=== PATIENT | female | born 1960 | race Caucasian/White ===

== ENCOUNTER 2017-12-07 17:08 | Emergency (ER) | payer OTHER ==
[2017-12-07] MEDS ORDERED: DEXAMETHASONE CONC 1 MG/ML SOLN PO ONE (20:08)
[2017-12-07] MEDS ORDERED: DIPHENHYDRAMINE HCL 25 MG CAPSULE PO ONE (20:08)
[2017-12-07 20:52] VITALS: BP 104/76
--- NOTE | 2017-12-07 21:45 | ER Document Report ---
ED General - General Chief Complaint: Numbness Stated Complaint: MOUTH/THROAT SWELLING, TINGLING HANDS Time Seen by Provider: 12/07/17 19:06 Mode of Arrival: Ambulatory Information source: Patient, Parent TRAVEL OUTSIDE OF THE [place] IN LAST 30 DAYS: No - HPI Patient complains to provider of: Sore throat Onset: Other - 57-year-old woman that presents 3 hours after sensation of fullness in her throat and tongue while eating a sandwich, she noted that she spoke with her at that time showed him her tongue as well as her lips and he did not appreciate any any swelling at that time. She has had a history of anxiety in the past and wondered to panic attacks this did feel similar to that she was not quite sure as there was some component that involved lips a little more than usual. She has never had any anaphylaxis to anything in the past, never needed an EpiPen. - Related Data Allergies/Adverse Reactions: Penicillins Allergy (Verified 12/07/17 17:09) Sulfa (Sulfonamide Antibiotics) Allergy (Verified 12/07/17 17:09) tetanus and diphtheria toxoids Allergy (Verified 12/07/17 17:09) Past Medical History - General Information source: Patient - Social History Smoking Status: Never Smoker Frequency of alcohol use: None Drug Abuse: None Family History: None Patient has suicidal ideation: No Patient has homicidal ideation: No - Past Medical History Cardiac Medical History: Reports: Hx Hypertension Pulmonary Medical History: Reports: Hx Pneumonia Renal/ Medical History: Denies: Hx Peritoneal Dialysis Psychiatric Medical History: Reports: Hx Depression - anxiety Past Surgical History: Reports: Hx Oral Surgery - wisdom teeth, Hx Orthopedic Surgery - jaw repair Review of Systems - Review of Systems -: Yes All other systems reviewed and negative Physical Exam - Vital signs Vitals: Temp Pulse BP Pulse Ox 97.4 F 87 113/63 96 12/07/17 17:19 12/07/17 17:19 12/07/17 17:19 12/07/17 17:19 - General General appearance: Appears well In distress: None - HEENT Head: Normocephalic Eyes: Normal Conjunctiva: Normal Cornea: Normal Extraocular movements intact: Yes Eyelashes: Normal Pupils: PERRL - Respiratory Respiratory status: No respiratory distress Chest status: Nontender Breath sounds: Normal Chest palpation: Normal - Cardiovascular Rhythm: Regular Heart sounds: Normal auscultation Murmur: No - Abdominal Inspection: Normal Distension: No distension Tenderness: Nontender - Back Back: Normal - Extremities General upper extremity: Normal inspection, Nontender, Normal ROM, Normal strength General lower extremity: Normal inspection, Nontender, Normal ROM, Normal strength - Neurological Neuro grossly intact: Yes Cognition: Normal Orientation: AAOx4 Foley Coma Scale Eye Opening: Spontaneous Foley Coma Scale Verbal: Oriented Edgardo Coma Scale Motor: Obeys Commands Foley Coma Scale Total: 15 Speech: Normal Cranial nerves: Normal Cerebellar coordination: Normal Motor strength normal: LUE, RUE, LLE, RLE Course - Re-evaluation Re-evalutation: 12/08/17 04:44 This well-appearing 57-year-old female presented for evaluation of some tingling in the hands as well as a fullness in her throat. She presented greater than 3 hours of the onset of symptoms. On examination she is well-appearing, has no appreciable swelling in the tongue or lips. Her notes that he did see both her tongue and lips during the time she thought she was having a reaction and he thought they looked very normal. She believes that these may be related to anxiety. On examination the patient is well appearing, will plan for administration of a dose of Decadron will plan for discharge with return precautions though I believe that likely this patient's reaction was primarily cerebral in nature and not actually anaphylactic. - Vital Signs Vital signs: Temp Pulse Resp BP Pulse Ox 98.2 F 87 14 104/76 97 12/07/17 20:01 12/07/17 17:19 12/07/17 20:01 12/07/17 20:01 12/07/17 20:01 Discharge - Discharge Clinical Impression: Tingling, Throat fullness Condition: Good Disposition: HOME, SELF-CARE Instructions: Anxiety ([facility]), Food Allergy ([facility]) Referrals: CATIA NÚÑEZ MD [Primary Care Provider] - Follow up as needed
--- NOTE | 2017-12-08 07:55 | EKG REPORT ---
SEVERITY:- NORMAL ECG - SINUS RHYTHM : Confirmed by: Nay Lopez MD 08-Dec-2017 07:55:16
== END 2017-12-07 20:30 | disposition home or self-care (01) ==
LOC: ER 17:08
DX: R20.2 Paresthesia of skin (principal); R09.89 Other specified symptoms and signs involving the circulatory and respiratory systems; I10 Essential (primary) hypertension; Z88.0 Allergy status to penicillin; Z88.2 Allergy status to sulfonamides; Z88.7 Allergy status to serum and vaccine
CPT/HCPCS: 93005; 99284; 93010; J8540